=== PATIENT | female | born 1995 | race Caucasian/White ===

== ENCOUNTER 2022-07-12 11:25 | Emergency (ER) | payer MEDICARE, SELFPAY ==
[2022-07-12 11:36] VITALS: BP 120/75; PULSE 73; RESP 16; TEMP 36.9; O2SAT 100
--- NOTE | 2022-07-12 11:42 | ED.SKABFB ---
HPI - Skin/Abscess/Foreign Bdy General Chief complaint: Allergic Reaction Stated complaint: alergic reaction Time Seen by Provider: 07/12/22 11:42 Source: patient, RN notes reviewed and old records reviewed Mode of arrival: ambulatory Limitations: no limitations History of Present Illness HPI narrative: 27-year-old female accompanied by friend who presents to [facility] care with complaints of allergic reaction with scattered hives to lowered extremities and on the lower abdomen which started on Saturday 2 days ago in the evening. Patient has hive type of rash noted on her legs and lower abdomen and one on her right elbow area with some itching. Patient reports that she had one previous episode of these type of hives and it was worse than this present rash prior to treatment. Patient reports that she has seen an clinical auditor and she takes a daily Zyrtec. Patient reports that she has not been allergy tested. Patient denies any new medications, no new foods, skin product or any new detergents or any known exposure to possible allergens. MD complaint: rash and other (hives) Onset (ago): day(s) (2) Treatments prior to arrival: other (zyrtec) Related Data Home Medications Medication Instructions Recorded Confirmed cetirizine 10 mg tablet See Rx Instructions .Route .COMPLEX 07/12/22 07/12/22 lamotrigine 100 mg tablet See Rx Instructions .Route .COMPLEX 07/12/22 07/12/22 levetiracetam 500 mg tablet See Rx Instructions .Route .COMPLEX 07/12/22 07/12/22 zonisamide 100 mg capsule See Rx Instructions .Route .COMPLEX 07/12/22 07/12/22 Allergies Allergy/AdvReac Type Severity Reaction Status Date / Time No Known Allergies Allergy Verified 07/12/22 11:46 Review of Systems Review of Systems: CONSTITUTIONAL: Denies fever, chills, or sweats. EYES: Denies visual changes, redness, or discharge. ENT: Denies rhinorrhea, congestion, sore throat, or otalgia. CARDIOVASCULAR: Denies chest pain, palpitations, or edema. RESPIRATORY: Denies cough or dyspnea. GASTROINTESTINAL: Denies abdominal pain, nausea, vomiting, or diarrhea. GENITOURINARY: Denies dysuria or hematuria. SKIN: Positive rash or itching, hives on legs scattered,and to lower abdomen and one spot on right elbow MUSCULOSKELETAL: Denies back pain, joint pain, or myalgia. NEUROLOGIC: Denies headache, numbness, or weakness. PSYCHIATRIC: Positive for history of anxiety or depression. All systems reviewed & are unremarkable except as noted in HPI and below PMFSH Past Medical History Medical History (Updated 07/12/22 @ 12:24 by Jemima Brothers NP) Epilepsy Kidney stones Seizure disorder Social History Social History (Updated 07/12/22 @ 12:24 by Jemima Brothers NP) Smoking status: Never smoker Alcohol intake: never Substance use: never Living arrangements: with family Gender identity (if verbalized by the patient): Female Comments At time of signature, agree with nursing past medical, surgical, social and family history. There is no relevant family history pertinent to the presenting complaint Exam Narrative: GENERAL: Well-appearing, well-nourished, and in no acute distress. HEAD: Normocephalic, atraumatic. EYES: PERRLA and EOMI. ENT: Nares clear, no rhinorrhea or epistaxis. Mucous membranes moist.TM's normal with good light reflex throat pink with no lesions or tonsil swelling, no [place] angina, patient has no difficulty with her breathing or with swallowing. NECK: Supple. no lymphadenopathy CHEST: Clear to auscultation. No respiratory distress.SAO2 100% on room air HEART: Regular rate and rhythm. No murmur heard. Normal peripheral pulses. ABDOMEN: Soft, nontender, nondistended, normal active bowel sounds. EXTREMITIES: Normal range of motion. No edema. SKIN: Warm, dry, scattered hives of various sizes on lower extremities and some on lower abdomen and one hive lesion to right elbow NEURO: No focal deficits. Alert and oriented x3. Course Course Level of Care: Express [facility]
== END 2022-07-12 12:05 | disposition home or self-care (01) ==
PROVIDERS: Emergency Provider Registered Nurse
DX: L50.9 Urticaria, unspecified (principal); T78.40XA Allergy, unspecified, initial encounter; G40.909 Epilepsy, unspecified, not intractable, without status epilepticus
CPT/HCPCS: 99213; G0463

== ENCOUNTER 2024-01-31 12:22 | Outpatient (CLI) | payer MEDICARE, MEDICAID, SELFPAY ==
--- NOTE | ~2024-01-31 | CT_ITS ---
EXAMINATION: CT abdomen pelvis wo con DATE: 01/31/2024 12:57 INDICATION: Kidney stones TECHNIQUE: Computed tomography (CT) of the abdomen and pelvis was performed without intravenous contr ast. Automated exposure control and iterative reconstruction technique were employed. Exam dose: 244 .56 mGy-cm total exam DLP. COMPARISON: None. FINDINGS: The lung bases are clear. Normal heart size. No pericardial or pleural effusion. The gallbladder is contracted. No bile duct or pancreatic duct dilatation. The liver, spleen, pancreas are unremarkable. Normal right adrenal gland. 13 x 16 mm left adrenal hypoattenuating lesion with attenuation 11.6 Hounsfield units, likely a benig n adrenal adenoma. Approximately 2.8 mm nonobstructing right renal calculus. Approximately 5.7 x 6 mm nonobstructing left renal calculus with attenuation of approximately 74 Houn sfield units. Several subtle nonobstructing pinpoint additional left renal calculi are suggested. No ureteral calculus or hydroureteronephrosis is noted on either side. The urinary bladder, uterus an d left ovary are unremarkable. Approximately 2.3 cm right ovarian cystic lesion. Consider pelvic ultr asound for further evaluation of this finding. Normal appendix. There is a prominent of fecal material in the colon but no bowel obstruction, bowel wall thickening, pneumatosis or intraperitoneal free air is evident. Normal caliber of the abdominal aorta. No intraperitoneal or retroperitoneal or pelvic mass lesion or adenopathy or ascites. Small fat-containing umbilical hernia. Left L5 pars interarticularis defect. No suspicious osteolytic or osteoblastic lesions. IMPRESSION: Mild bilateral nonobstructive nephrolithiasis 13 x 16 mm left adrenal adenoma Approximately 2.3 cm right ovarian cystic lesions are noted consider pelvic ultrasound for better def inition of this finding Normal appendix Left L5 pars interarticularis defect; no spondylolisthesis Reviewed, dictated and finalized at [facility] Reviewed, dictated and finalized at [facility] IMPRESSION: Mild bilateral nonobstructive nephrolithiasis 13 x 16 mm left adrenal adenoma Approximately 2.3 cm right ovarian cystic lesions are noted consider pelvic ult rasound for better definition of this finding Normal appendix Left L5 pars interarticularis defect; no spondylolisthesis
== END 2024-01-31 12:23 | disposition home or self-care (01) ==
PROVIDERS: Visit Provider Urology
DX: N20.0 Calculus of kidney (principal)
CPT/HCPCS: 74176